=== PATIENT | male | born 1990 | race Caucasian/White ===

== ENCOUNTER → 2024-10-15 | Outpatient (CLI) | payer BC ==
[2024-10-15 10:47] VITALS: BP 162/93; PULSE 84; RESP 16; TEMP 98.1
--- NOTE | 2024-10-15 11:06 | P.SLEEP ---
History of Present Illness DATE: 10/15/2024 CONSULTATION/NEW PATIENT EVALUATION HISTORY OF PRESENT ILLNESS/SLEEP-WAKE EVALUATION: 53-year-old gentleman had been evaluated in the sleep center for possible obstructive sleep apnea hypopnea syndrome. SLEEP SCHEDULE: Usually sleep schedule from 10 PM to 7 AM on weekdays and from midnight until 8 AM on weekend. FALLING ASLEEP: Sometimes patient has difficulties with falling asleep. DURING SLEEP: Patient snores and wakes up from sleep up to 3 times. Positive history of jerking movements during the sleep. Positive history of grinding teeth, heartburn, dry mouth, restless legs and sweating. No history of hypnogogical hallucinations, sleep paralysis, or cataplexy. DURING THE DAY/WAKE STATE: In the morning patient wake up tired, has difficulties to pay attention, falling asleep during the day. Positive history of problems with memory, concentration. Hubert sleepiness scale significantly increased to 15. Usually patient does not take naps. PAST MEDICAL HISTORY: Hypertension, acid reflux, asthma, allergy, headaches, depression. PAST SURGICAL HISTORY: Tonsillectomy. MEDICATIONS: Have been reviewed, please see below. SOCIAL HISTORY: Please see below. FAMILY HISTORY: Please see below. REVIEW OF SYSTEMS: Snoring, multiple awakenings from sleep, significant excessive daytime sleepiness. No fevers. No double vision. No recent chest pain. No shortness of breath. No abdominal pain. No bleeding episodes. No blood in urine. No seizure episodes. PHYSICAL EXAMINATION: GENERAL: A pleasant patient without any distress. VITAL SIGNS: Please see below, weight 338 pounds, BMI 44.5. HEENT: PERRLA, EOMI. Evaluation of oropharynx showed tongue protrudes midline, low position of soft palate Mallampati 4. NECK: Supple. No JVD. Thyroid is not palpable. 18.5 inches in circumference. LUNGS: Clear to percussion and to auscultation. Good air exchange. No wheezing or rhonchi. HEART: S1, S2 regular. No murmurs, gallops or rubs. ABDOMEN: Soft and nontender. Bowel sounds are present. No organomegaly appreciated. EXTREMITIES: No clubbing or cyanosis. PATTERN MARKING SUPERVISOR: Awake, alert, and oriented x3. Cranial nerves 2 to 7 intact. There is no fasciculation or atrophy noted. No focal deficits observed. ASSESSMENT: 1. Snoring, multiple awakenings from sleep, extremely low position of soft pa late Mallampati 4, wide neck 18.5 inches in circumference, sleepiness with Hubert Sleepiness Scale 15. Obstructive sleep apnea hypopnea syndrome. 2. Significant amount of movements during the sleep, possible periodic limb movements. 3. Significant sleepiness with Hubert Sleepiness Scale 15 dictate necessity also include for differential diagnosis narcolepsy and hypersomnia. 4. Obesity, BMI 44.5. 5 hypertension. 6 . Acid reflux. 7. Asthma. 8. Allergy. 9 . Headaches. 10. Depression. 11. Status post tonsillectomy. PLAN: 1. Home sleep apnea test for evaluation of patient's breathing during sleep. 2. Following plan after reading sleep study. 3. Preferable position during sleep on the side. 4. No driving if patient feels any sleepiness. Patient is aware of civil and criminal liability for unsafe driving. 5. Sleep hygiene with regular sleep time for at least 7.5-8 hours. 6. Watching and losing weight. Thank you very much for referring this patient for consultation. Sincerely, Guido Lucas MD, PhD, FAASM. Diplomat of [place] [employer], Sleep Medicine Board by [place] [employer] [place] [employer] University Professor of [facility] [place] cc: Raul Alanis MD Past Medical History Past Medical History: GERD/Reflux, Hypertension Additional Past Medical History / Comment(s): low testostorone History of Any Multi-Drug Resistant Organisms: None Reported Past Surgical History: Tonsillectomy Additional Past Surgical History / Comment(s): Right Bunion, Right hand Past Anesthesia/Blood Transfusion Reactions: No Reported Reaction Past Psychological History: Depression Smoking Status: Vaper Past Alcohol Use History: Rare Past Drug Use History: None Reported - Past Family History Mother Family Medical History: Asthma, Cancer Additional Family Medical History / Comment(s): Insomnia Father Family Medical History: Cancer, GERD/Reflux, Hypertension, Osteoarthritis (OA) Additional Family Medical History / Comment(s): snoring Medications and Allergies Home Medications Medication Instructions Recorded Confirmed Type Cetirizine HCl [Zyrtec] 5 mg PO DAILY 10/15/24 10/15/24 History Famotidine 20 mg PO DAILY 10/15/24 10/15/24 History Metoprolol Succinate [Kapspargo 50 mg PO DAILY 10/15/24 10/15/24 History Sprinkle] Sertraline [Zoloft] 50 mg PO DAILY 10/15/24 10/15/24 History Testosterone Enanthate [Xyosted] 200 mg SQ WEEKLY 10/15/24 10/15/24 History Triamterene/Hydrochlorothiazid 37.5 mg SQ DAILY 10/15/24 10/15/24 History [Triamterene-Hctz 37.5-25 mg Cp] buPROPion [Wellbutrin] 100 mg PO DAILY 10/15/24 10/15/24 History Physical Exam Vitals: Vital Signs Temp Pulse Resp BP Pulse Ox 10/15/24 10:46 98.1 F 84 16 162/93 96 Intake and Output 10/14/24 10/15/24 10/15/24 22:59 06:59 14:59 Other: Weight 153.314 kg Sleep Note - Sleep Data ESS Total: 15 - Sleep Note Sleep Note: Temperature: 98.1 F Pulse Rate: 84 Respiratory Rate: 16 Blood Pressure: 162/93 SpO2: 96 Height: 6 ft 1 in Weight: 153.314 kg BMI: Neck Circumference: 18.5
== END ==
LOC: 3 N SLEEP 10:12
PROVIDERS: ATTEND Internal Medicine
DX: G47.33 Obstructive sleep apnea (adult) (pediatric) (principal); K21.9 Gastro-esophageal reflux disease without esophagitis; J45.909 Unspecified asthma, uncomplicated; F32.A Depression, unspecified; E66.9 Obesity, unspecified; R51.9 Headache, unspecified; T78.40XA Allergy, unspecified, initial encounter; Z68.41 Body mass index [BMI] 40.0-44.9, adult; Z90.89 Acquired absence of other organs
CPT/HCPCS: 99202

== ENCOUNTER → 2024-10-20 | Outpatient (CLI) | payer BC ==
--- NOTE | 2024-10-22 12:04 | P.PCN ---
Description of Procedure: CLINICAL: A home sleep apnea test has been done for confirmation of possible obstructive sleep apnea-hypopnea syndrome. DESCRIPTION OF PROCEDURE: RESULTS: Recording time was 11 hours 14 minutes. Evaluation time was 7 hours 48 minutes. Evaluation time is sufficient for making conclusion about results of the test. Raw data of sleep recording has been reviewed and is adequate. Respiratory channel showed 2 apneas and 162 hypopneas. Apnea-hypopnea index was 21.1 per hour. Pulse rate in the range between minimum 40, maximum 237, average 72 by computer calculation. Lowest desaturation was 81%. IMPRESSION: 1. Moderate Obstructive Sleep Apnea Hypopnea Syndrome. Please see other impressions from consultation. PLAN: 1. The patient will be started on auto-PAP treatment for correction of respiratory abnormallities during sleep. 2. I will see patient for follow up visit to discuss results of the test, evaluate clinical response on treatment with PAP therapy and make any necessary adjustments related to mask fitting, pressure, and humidification. 3. Watching and losing weight. 4. Sleep hygiene with regular time in bed for at least 8 hours. 5. No driving if feeling any sleepiness. Thank you very much for allowing me to participate in the management of your patient. Sincerely, Guido Lucas MD, PhD, FAASM Diplomat of [place] [employer] Sleep Medicine Board of [place] [employer] Head Of Physics of [facility] [place] cc: Leonela Alanis MD
== END ==
LOC: 3 N SLEEP 16:49
PROVIDERS: ATTEND Internal Medicine
DX: G47.33 Obstructive sleep apnea (adult) (pediatric) (principal); G47.61 Periodic limb movement disorder; E66.9 Obesity, unspecified; Z68.41 Body mass index [BMI] 40.0-44.9, adult; I10 Essential (primary) hypertension; K21.9 Gastro-esophageal reflux disease without esophagitis; J45.909 Unspecified asthma, uncomplicated; R51.9 Headache, unspecified; F32.A Depression, unspecified; Z98.890 Other specified postprocedural states

== ENCOUNTER → 2024-12-02 | Outpatient (CLI) | payer BC ==
[2024-12-02 17:29] VITALS: BP 148/88; PULSE 80; RESP 16; TEMP 98.1; BMI 44.7
--- NOTE | 2024-12-02 17:43 | P.HPBAR ---
Bariatric H&P - History & Physicial H&P Date: 12/02/24 History & Physicial: Visit/CC: new Patient initial contact: Initial weight: Initial weight in pounds: Height: 6 ft 1 in Initial BMI: Last weight: Current weight: 153.768 kg Current weight in pounds: 339.00 Current BMI: 44.7 [place] body weight (based on NIH guidelines): 83.461 kg Excess body weight loss: The patient is a 34 year-old M who presents for Bariatric Assessment. DATE OF SERVICE: 12/02/24 REASON FOR CONSULTATION: Initial bariatric evaluation. HISTORY OF PRESENT ILLNESS: Ankit Vásquez is a 34-year-old male who comes with lifelong morbid obesity. He comes in looking into sleeve gastrectomy. He has heartburn including taking Pepcid with minimal relief. He has tried weight loss with head mixer. He has tried dieting. He has taken Wegovy including weight watchers. Her highest weight is now. He has lost 80 pound in High school. He is going to gym twice daily and [employer]. He still has his gallbladder. He denies moderate abdominal cramps. He reports gallbladder was removed from half brother. He denies prior scope. He reports ultrasound of the stomach 1 year ago with nothing found. No stomach cancer. No colon cancer. No celiac disease. He denies inflammatory bowel disease or irritable bowel disease. He report his mother when he was a child and has limited knowledge of his family history. At height of 6 feet 1 inches, ideal body weight is 188 pounds. He comes in 339 pounds. Body mass index is 44.7. He is 151 pounds overweight. PAST MEDICAL HISTORY: 1. Morbid obesity due to excess calories 2. Body mass index of 44.7 3. Gastroesophageal reflux disease 4. Hyperlipidemia 5. Hypertensive heart disease 6. Obstructive sleep apnea 7. Hypotestosteronism 8. Mnire's disease 9. Depressive disorder 10. Gout 11. Osteoarthritis lower back PAST SURGICAL HISTORY: 1. Tonsillectomy 2. Bunionectomy 3. [place] tooth extraction HOME MEDICATIONS: Home Medications Medication Instructions Recorded Confirmed Sertraline [Zoloft] 50 mg PO HS 10/15/24 12/30/24 Testosterone Enanthate [Xyosted] 200 mg SQ WEEKLY 10/15/24 12/30/24 Triamterene/Hydrochlorothiazid 37.5 mg PO QAM 10/15/24 12/30/24 [Triamterene-Hctz 37.5-25 mg Cp] buPROPion [Wellbutrin] 100 mg PO DAILY 10/15/24 12/30/24 Fenofibrate 160 mg PO DAILY 12/02/24 12/30/24 Ibuprofen 800 mg PO HS PRN 12/02/24 12/30/24 Multivitamins, Thera [Multivitamin 1 tab PO DAILY 12/02/24 12/30/24 (formulary)] Metoprolol Succinate [Toprol XL] 50 mg PO HS 12/17/24 12/30/24 Vitamin B-12 (Unknown Dose) 1 tab PO DAILY 12/17/24 12/30/24 Vitamin D (Unknown Dose) 1 tab PO DAILY 12/17/24 12/30/24 Zyrtec (Unknown Dose) 1 tab PO HS 12/17/24 12/30/24 methocarbamoL [Robaxin-750] 750 mg PO HS 12/17/24 12/30/24 allopurinoL 100 mg PO DAILY 12/30/24 12/30/24 Previous Rx's Medication Instructions Recorded Omeprazole [PriLOSEC] 40 mg PO DAILY #14 cap 12/21/24 Ergocalciferol [Vitamin D2 (1250 1,250 mcg PO WEEKLY #20 cap 12/30/24 Mcg = 61867 Iu)] ALLERGIES: Allergies Allergy/AdvReac Type Severity Reaction Status Date / Time cephalexin [From Keflex] Allergy Rash/Hives Verified 12/30/24 16:09 SOCIAL HISTORY: Past tobacco use. FAMILY HISTORY: No family history of ulcerative colitis disease or Crohn's disease. Family history of morbid obesity. No lupus in the family. No reports of stomach or esophageal cancer. REVIEW OF ORGAN SYSTEMS: CONSTITUTIONAL: At height of 6 feet 1 inches, ideal body weight is 188 pounds. He comes in 339 pounds. Body mass index is 44.7. He is 151 pounds overweight. HEENT: Denies any active troubles with vision or hearing. Has troubles with swallowing. ENDOCRINE: Denies diabetes. No hypothyroidism. CARDIOVASCULAR: Past reports of palpitations or heart attacks or chest pain. Has hypertensive heart disease. RESPIRATORY: Has daytime somnolence. Denies asthma. GASTROINTESTINAL: Denies any bright red blood per rectum. No diarrhea. No constipation. Has gastroesophageal reflux disease. GENITOURINARY: Denies bladder urgency. No recent blood in urine MUSCULOSKELETAL: Has lower back pain and joint pain. Has osteoarthritis of the knees. NEURO: No headaches. No seizure disorders. PSYCH: Has depression. No suicidal ideation. RHEUMATOLOGIC: No lupus. No rheumatoid arthritis. HEMATOLOGIC: Denies any abnormal bleeding or bruising. SKIN: No rash. No skin cancer. PHYSICAL EXAM: VITAL SIGNS: Height 6 foot 1 inches, weight 339 pounds. BMI 44.7 Vital Signs Temp 98.1 F 12/02/24 17:19 Pulse 80 12/02/24 17:19 Resp 16 12/02/24 17:19 BP 148/88 12/02/24 17:19 Pulse Ox FiO2 GENERAL: Well-developed in no acute distress. HEENT: No scleral icterus. Extraocular movements grossly intact. Hears conversational speech. No nasal drainage. NECK: Supple without lymphadenopathy. CHEST: Nonlabored respirations with equal bilateral excursions. CARDIOVASCULAR: Regular rate and regular rhythm. Distal 2+ pulses. ABDOMEN: Obese, soft, nontender, nondistended. MUSCULOSKELETAL: No clubbing, cyanosis. Gross strength 5/5 distal lower extremities. NEURO: No focal or lateralizing signs. Cranial nerves 2 through 12 grossly within normal limits. PSYCH: Appropriate affect. Alert and oriented to person, place and time. SKIN: Good skin turgor. Well perfused. ASSESSMENT: 1. Morbid obesity due to excess calories 2. Body mass index of 44.7 3. Gastroesophageal reflux disease 4. Hyperlipidemia 5. Hypertensive heart disease 6. Obstructive sleep apnea 7. Hypotestosteronism 8. Mnire's disease 9. Depressive disorder 10. Gout 11. Osteoarthritis lower back PLAN: 1. Surgical options including a band, gastric bypass, sleeve gastrectomy were described in detail. Alternatives such as gastric balloon including duodenal switch were described. He is looking into the sleeve gastrectomy. 2. Recommend ultrasound of the gallbladder including for family history of gallbladder disease 3. Recommend a bariatric metabolic panel to evaluate for micro- including macronutrient deficiencies. 4. For history of daytime somnolence, recommend evaluation and treatment for sleep apnea. 5. Dietary surveillance and counseling was reviewed. Increased protein intake over 100 grams daily advised. 6. Will need cardiac risk assessment. 7. Recommend medical risk assessment. 8. Psych assessment per insurance guidelines. 9. Recommend upper endoscopy. 10. Recommend 12-lead EKG. Thank you for this consultation. Past Medical History Past Medical History: GERD/Reflux, Hyperlipidemia, Hypertension, Sleep Apnea/CPAP/BIPAP Additional Past Medical History / Comment(s): low testostorone, beginnings of meineres syndrome History of Any Multi-Drug Resistant Organisms: None Reported Past Surgical History: Tonsillectomy Additional Past Surgical History / Comment(s): Right Bunion, Right hand, [place] teeth Past Anesthesia/Blood Transfusion Reactions: No Reported Reaction Past Psychological History: Depression Smoking Status: Former smoker Past Alcohol Use History: Rare Past Drug Use History: None Reported - Past Family History Mother Family Medical History: Asthma, Cancer Additional Family Medical History / Comment(s): Insomnia Father Family Medical History: Cancer, GERD/Reflux, Hypertension, Osteoarthritis (OA) Additional Family Medical History / Comment(s): snoring Surgical - Exam Vital Signs Temp Pulse Resp BP 98.1 F 80 16 148/88 12/02/24 17:19 12/02/24 17:19 12/02/24 17:19 12/02/24 17:19 Bariatric Checklist Checklist: Plan: Checklist: EGD: 1. Hiatal hernia: 2. H. Pylori: HgbA1c: Vitamin D: Smoking: Primary care physician referral: Leonela Alanis Psychiatry clearance: Cardiology clearance: Sleep study: Diet journal: VTE risk score: VTE risk level: Rehab needs at discharge:
== END ==
LOC: BARWHC3 15:47
PROVIDERS: ATTEND Surgery Plastic and Reconstructive Surgery
DX: E66.01 Morbid (severe) obesity due to excess calories (principal); K21.9 Gastro-esophageal reflux disease without esophagitis; I11.9 Hypertensive heart disease without heart failure; E78.5 Hyperlipidemia, unspecified; G47.33 Obstructive sleep apnea (adult) (pediatric); H81.09 Meniere's disease, unspecified ear; M10.9 Gout, unspecified; F32.A Depression, unspecified; M19.09 Primary osteoarthritis, other specified site; Z68.41 Body mass index [BMI] 40.0-44.9, adult; Z88.1 Allergy status to other antibiotic agents
CPT/HCPCS: 99211

== ENCOUNTER → 2024-12-05 | Outpatient (CLI) | payer BC ==
[2024-12-05 12:06] LABS: Partial Thromboplastin Time 24.2 sec (22.0-30.0); Prothrombin Time 11.2 sec (10.0-12.5)
[2024-12-06 06:45] LABS: HCT 42.8 % (39.6-50.0); HGB 14.5 g/dL (13.0-17.0); MCH 29.4 pg (27.0-32.0); MCHC 33.9 g/dL (32.0-37.0); MCV 86.8 FL (80.0-97.0); Mean Platelet Volume 10.7 FL (9.5-12.2); NRBC Per 100 WBC 0 X 10*3/uL (0.00-0.01); Platelet Count 285 X 10*3/uL (140-440); RBC 4.93 X 10*6/uL (4.40-5.60); RDW 12.5 % (11.5-14.5); WBC 6.51 X 10*3/uL (4.50-10.00)
[2024-12-06 07:58] LABS: ALT 52 U/L (10-49); AST 41 U/L (14-35); Albumin 4.6 g/dL (3.8-4.9); Alkaline Phosphatase 50 U/L (41-126); Blood Urea Nitrogen 12.8 mg/dL (9.0-27.0); Calcium 9.8 mg/dL (8.7-10.3); Carbon Dioxide 25.3 mmol/L (21.6-31.8); Chloride 102 mmol/L (96-109); Chol/HDL Ratio 5.68 Ratio; Globulin 2.7 g/dL (1.6-3.3); Glucose 91 mg/dL (70-110); LDL Cholesterol,Calculated 64.3 mg/dL (0.0-131.0); Magnesium 1.9 mg/dL (1.5-2.4); Potassium 4.2 mmol/L (3.5-5.5); Sodium 140 mmol/L (135-145); Total Bilirubin 0.5 mg/dL (0.3-1.2); Total Protein 7.3 g/dL (6.2-8.2)
[2024-12-06 09:53] LABS: % Iron Saturation 23.81 (15.00-50.00); Iron 75 UG/DL (65-175); Total Iron Binding Capacity 315 UG/DL (228-460)
[2024-12-06 11:32] LABS: Prealbumin 29.8 mg/dL (18.0-42.0)
== END | disposition home or self-care (01) ==
LOC: LABWHC1 10:16
PROVIDERS: ATTEND Surgery Plastic and Reconstructive Surgery
DX: E66.01 Morbid (severe) obesity due to excess calories (principal); E89.1 Postprocedural hypoinsulinemia; E44.0 Moderate protein-calorie malnutrition; E45 Retarded development following protein-calorie malnutrition; E55.9 Vitamin D deficiency, unspecified; D50.8 Other iron deficiency anemias; D50.9 Iron deficiency anemia, unspecified; K74.1 Hepatic sclerosis; N19 Unspecified kidney failure; K50.90 Crohn's disease, unspecified, without complications; T56.894A Toxic effect of other metals, undetermined, initial encounter
CPT/HCPCS: 36415; 80053; 80061; 80307; 80323; 82306; 82525; 82607; 82728; 82746; 83036; 83540; 83550; 83735; 83970; 84100; 84134; 84425; 84443; 84590; 84630; 85027; 85610; 85730

== ENCOUNTER → 2024-12-16 | Outpatient (CLI) | payer BC | END | disposition home or self-care (01) | LOC: LABWHC1 15:30 | PROVIDERS: ATTEND Surgery Plastic and Reconstructive Surgery | DX: Z53.9 Procedure and treatment not carried out, unspecified reason (principal) ==

== ENCOUNTER → 2024-12-21 | Day surgery (SDC) | payer BC ==
[2024-12-17 12:14] VITALS: BMI 45.3
[~2024-12-21] MED LIST: LACTATED RINGERS 1,000 ML IV SCH; LIDOCAINE 1% (10MG/ML) FOR IV START INTRADERMA PRN; LIDOCAINE 1% INJ 10MG/ML (20 ML MDV) ONE; PROPOFOL 10 MG/ML 20 ML VIAL IV ONE
--- NOTE | 2024-12-21 07:39 | P.GSHP ---
History of Present Illness H&P Date: 12/21/24 CHIEF COMPLAINT: GERD HISTORY OF PRESENT ILLNESS: The patient is a 34-year-old male who presents reports gastroesophageal reflux disease. Upper endoscopy was offered for further evaluation and management. PAST MEDICAL HISTORY: Please see list. PAST SURGICAL HISTORY: Please see list. MEDICATIONS: Please see list. ALLERGIES: Please see list. SOCIAL HISTORY: No illicit drug use FAMILY HISTORY: No reports of Crohn disease or ulcerative colitis. REVIEW OF ORGAN SYSTEMS: CONSTITUTIONAL: No reports of fevers or chills. GI: Denies any blood in stools or constipation. PHYSICAL EXAM: VITAL SIGNS: Stable GENERAL: Well-developed and pleasant in no acute distress. HEENT: No scleral icterus. Extraocular movements grossly intact. Moist buccal mucosa. NECK: Supple without lymphadenopathy. CHEST: Unlabored respirations. Equal bilateral excursions. CARDIOVASCULAR: Regular rate and rhythm. Distal 2+ pulses. ABDOMEN: Soft, nondistended. MUSCULOSKELETAL: No clubbing, cyanosis, or edema. ASSESSMENT: 1. Gastroesophageal reflux disease PLAN: 1. Recommend proceeding with an upper endoscopy Past Medical History Past Medical History: Asthma, GERD/Reflux, Hearing Disorder / Deafness, Hyperlipidemia, Hypertension, Osteoarthritis (OA), Sleep Apnea/CPAP/BIPAP Additional Past Medical History / Comment(s): No asthma attack since childhood, hard of hearing, possible fatty liver, low testostorone, Meineres, CPAP use, hemorrrhoids, migraines and headaches. History of Any Multi-Drug Resistant Organisms: None Reported Past Surgical History: Tonsillectomy Additional Past Surgical History / Comment(s): Right bunionectomy, right hand surgery, wisdom teeth removed, colonoscopy, procedure for tongue tie. Past Anesthesia/Blood Transfusion Reactions: No Reported Reaction, Motion Sickness Smoking Status: Former smoker - Past Family History Mother Family Medical History: Asthma, Cancer Additional Family Medical History / Comment(s): Insomnia. Father Family Medical History: Cancer, GERD/Reflux, Hypertension, Osteoarthritis (OA) Additional Family Medical History / Comment(s): Snoring. Medications and Allergies Home Medications Medication Instructions Recorded Confirmed Type Famotidine 20 mg PO BID 10/15/24 12/17/24 History Sertraline [Zoloft] 50 mg PO HS 10/15/24 12/17/24 History Testosterone Enanthate [Xyosted] 200 mg SQ WEEKLY 10/15/24 12/17/24 History Triamterene/Hydrochlorothiazid 37.5 mg PO QAM 10/15/24 12/17/24 History [Triamterene-Hctz 37.5-25 mg Cp] buPROPion [Wellbutrin] 100 mg PO DAILY 10/15/24 12/17/24 History Fenofibrate 160 mg PO DAILY 12/02/24 12/17/24 History Ibuprofen 800 mg PO HS PRN 12/02/24 12/17/24 History Multivitamins, Thera [Multivitamin 1 tab PO DAILY 12/02/24 12/17/24 History (formulary)] Metoprolol Succinate [Toprol XL] 50 mg PO HS 12/17/24 12/17/24 History Vitamin B-12 (Unknown Dose) 1 tab PO DAILY 12/17/24 12/17/24 History Vitamin D (Unknown Dose) 1 tab PO DAILY 12/17/24 12/17/24 History Zyrtec (Unknown Dose) 1 tab PO HS 12/17/24 12/17/24 History methocarbamoL [Robaxin-750] 750 mg PO HS 12/17/24 12/17/24 History Allergies Allergy/AdvReac Type Severity Reaction Status Date / Time cephalexin [From Keflex] Allergy Rash/Hives Verified 12/17/24 11:54
[2024-12-21] MEDS: LACTATED RINGERS 1,000 ML IV ONE (08:25)
[2024-12-21 08:29] VITALS: TEMP 97.7
--- NOTE | 2024-12-21 08:55 | P.PCN ---
Date of Procedure: 12/21/24 Description of Procedure: PREOPERATIVE DIAGNOSIS: Gastroesophageal reflux disease. Dysphagia Morbid obesity due to excess calories, BMI 44.6 POSTOPERATIVE DIAGNOSIS: Gastroesophageal reflux disease with erosive esophagitis Morbid obesity. Gastritis, acute Esophageal ulcer OPERATION: Esophagogastroduodenoscopy with cold forceps biopsies along esophagus, antrum and duodenum SURGEON: Kena Rubin MD ANESTHESIA: MAC. INDICATIONS: The patient is a 34-year-old female who presents with reflux disease. Benefits and risks of the procedure were described. Informed consent was obtained. DESCRIPTION: The patient was brought into the endoscopy suite and laid in the left lateral decubitus position. An Olympus gastroscope was passed along the posterior oropharynx down to the distal esophagus where the squamocolumnar junction was encountered at 40 cm from the incisors. The stomach was entered and no bile reflux was found. Additional findings are listed below. Biopsies with cold forceps were obtained of the antrum. The first through third portion of the duodenum was examined. Retroflexion of the scope confirmed Hill grade 2 lower esophageal valve. The squamocolumnar junction demonstrated LA grade B erosive esophagitis. The stomach was desufflated. The patient tolerated the procedure well. FINDINGS: Squamocolumnar junction 40 cm from the incisors. Diaphragmatic hiatus at 40 cm. Hill grade 2 lower esophageal valve. LA grade B erosive esophagitis with acute esophageal ulcer, biopsy obtained Biopsies obtained of the duodenum. Chronic gastritis with biopsies obtained. RECOMMENDATIONS: Discontinue Pepcid, start omeprazole 40 mg daily for 2 weeks Plan - Discharge Summary Discharge Rx Participant: Yes New Discharge Prescriptions: New Omeprazole [PriLOSEC] 40 mg PO DAILY #14 cap Continue Triamterene/Hydrochlorothiazid [Triamterene-Hctz 37.5-25 mg Cp] 37.5 mg PO QAM Sertraline [Zoloft] 50 mg PO HS Zyrtec (Unknown Dose) 1 tab PO HS Vitamin B-12 (Unknown Dose) 1 tab PO DAILY Testosterone Enanthate [Xyosted] 200 mg SQ WEEKLY buPROPion [Wellbutrin] 100 mg PO DAILY Ibuprofen 800 mg PO HS PRN PRN Reason: Pain Fenofibrate 160 mg PO DAILY Multivitamins, Thera [Multivitamin (formulary)] 1 tab PO DAILY Metoprolol Succinate [Toprol XL] 50 mg PO HS methocarbamoL [Robaxin-750] 750 mg PO HS Vitamin D (Unknown Dose) 1 tab PO DAILY Discontinued Famotidine 20 mg PO BID Discharge Medication List Sertraline [Zoloft] 50 mg PO HS 10/15/24 [History] Testosterone Enanthate [Xyosted] 200 mg SQ WEEKLY 10/15/24 [History] Triamterene/Hydrochlorothiazid [Triamterene-Hctz 37.5-25 mg Cp] 37.5 mg PO QAM 10/15/24 [History] buPROPion [Wellbutrin] 100 mg PO DAILY 10/15/24 [History] Fenofibrate 160 mg PO DAILY 12/02/24 [History] Ibuprofen 800 mg PO HS PRN 12/02/24 [History] Multivitamins, Thera [Multivitamin (formulary)] 1 tab PO DAILY 12/02/24 [History] Metoprolol Succinate [Toprol XL] 50 mg PO HS 12/17/24 [History] Vitamin B-12 (Unknown Dose) 1 tab PO DAILY 12/17/24 [History] Vitamin D (Unknown Dose) 1 tab PO DAILY 12/17/24 [History] Zyrtec (Unknown Dose) 1 tab PO HS 12/17/24 [History] methocarbamoL [Robaxin-750] 750 mg PO HS 12/17/24 [History] Omeprazole [PriLOSEC] 40 mg PO DAILY #14 cap 12/21/24 [Rx] [facility]Ref[facility] [facility] [place] [place] [facility] [place] 12/30/24 3:00 pm Patient Instructions/Handouts: Peptic Ulcer (DC) Discharge Disposition: HOME SELF-CARE
[2024-12-21 09:09] VITALS: BP 122/67; PULSE 79; RESP 16
== END | disposition home or self-care (01) ==
LOC: ORWHC2ENDO 07:51
PROVIDERS: ATTEND Surgery Plastic and Reconstructive Surgery
DX: K21.00 Gastro-esophageal reflux disease with esophagitis, without bleeding (principal); K22.10 Ulcer of esophagus without bleeding; D72.10 Eosinophilia, unspecified; K29.50 Unspecified chronic gastritis without bleeding; I10 Essential (primary) hypertension; E78.5 Hyperlipidemia, unspecified; G47.33 Obstructive sleep apnea (adult) (pediatric); H91.90 Unspecified hearing loss, unspecified ear; E66.01 Morbid (severe) obesity due to excess calories; Z68.41 Body mass index [BMI] 40.0-44.9, adult; Z79.890 Hormone replacement therapy; Z79.899 Other long term (current) drug therapy; Z87.891 Personal history of nicotine dependence; Z88.1 Allergy status to other antibiotic agents; Z83.79 Family history of other diseases of the digestive system
CPT/HCPCS: 88305; 88312; 88342; 43239; J2003; J2704

== ENCOUNTER → 2024-12-28 | Outpatient (CLI) | payer BC ==
[2024-12-28 13:17] VITALS: BMI 45.1
== END ==
LOC: BARWHC3 12:58
PROVIDERS: ATTEND Surgery Plastic and Reconstructive Surgery
DX: E66.01 Morbid (severe) obesity due to excess calories (principal); Z71.3 Dietary counseling and surveillance; Z88.1 Allergy status to other antibiotic agents
CPT/HCPCS: 97804

== ENCOUNTER → 2024-12-30 | Outpatient (CLI) | payer BC ==
[2024-12-30 16:22] VITALS: BP 144/91; PULSE 86; RESP 16; TEMP 98.7; BMI 44.3
--- NOTE | 2024-12-30 17:02 | P.HPBAR ---
Bariatric H&P - History & Physicial H&P Date: 12/30/24 History & Physicial: Visit/CC: pre surg Patient initial contact: Initial weight: Initial weight in pounds: Height: 6 ft 1 in Initial BMI: Last weight: Current weight: 152.407 kg Current weight in pounds: 336.00 Current BMI: 44.3 [place] body weight (based on NIH guidelines): 83.63 kg Excess body weight loss: The patient is a 34 year-old M who presents for Bariatric Assessment. He is looking into sleeve. Consent. Vit D sent. EKG gorgeous. CPAP machine. 2 week recovery. Diet. Still has gallbladder. Has elevated LFTS. Brother has gallbladder problems. Will need cholecystectomy. US gallbladder. Past Medical History Past Medical History: GERD/Reflux, Hyperlipidemia, Hypertension, Sleep Apnea/CPAP/BIPAP Additional Past Medical History / Comment(s): low testostorone, beginnings of meineres syndrome, gout History of Any Multi-Drug Resistant Organisms: None Reported Past Surgical History: Tonsillectomy Additional Past Surgical History / Comment(s): Right Bunion, Right hand, [place] teeth Past Anesthesia/Blood Transfusion Reactions: No Reported Reaction Past Psychological History: Depression Smoking Status: Former smoker Past Alcohol Use History: Rare Additional Past Alcohol Use History / Comment(s): Quit smoking over a yr ago. Past Drug Use History: None Reported - Past Family History Mother Family Medical History: Asthma, Cancer Father Family Medical History: Cancer, GERD/Reflux, Hypertension, Osteoarthritis (OA) Surgical - Exam Vital Signs Temp Pulse Resp BP 98.7 F 86 16 144/91 12/30/24 16:09 12/30/24 16:09 12/30/24 16:09 12/30/24 16:09 Bariatric Checklist Checklist: Plan: Checklist: EGD: 1. Hiatal hernia: 2. H. Pylori: HgbA1c: Vitamin D: Smoking: Primary care physician referral: Leonela Alanis Psychiatry clearance: Cardiology clearance: Sleep study: Diet journal: VTE risk score: VTE risk level: Rehab needs at discharge:
== END ==
LOC: BARWHC3 15:21
PROVIDERS: ATTEND Surgery Plastic and Reconstructive Surgery
DX: E66.01 Morbid (severe) obesity due to excess calories (principal); Z68.41 Body mass index [BMI] 40.0-44.9, adult; Z88.1 Allergy status to other antibiotic agents
CPT/HCPCS: 99211

== ENCOUNTER → 2025-01-07 | Outpatient (CLI) | payer BC ==
[2025-01-07 15:02] LABS: Basophils # (A) 0.05 X 10*3/uL (0.00-0.10); Basophils % (A) 0.6 %; Eosinophils # (A) 0.24 X 10*3/uL (0.04-0.35); Eosinophils % (A) 2.8 %; HCT 43.4 % (39.6-50.0); HGB 14.9 g/dL (13.0-17.0); Lymphocytes # (A) 1.84 X 10*3/uL (0.90-5.00); Lymphocytes % (A) 21.8 %; MCH 29.5 pg (27.0-32.0); MCHC 34.3 g/dL (32.0-37.0); MCV 85.9 FL (80.0-97.0); Mean Platelet Volume 9.7 FL (9.5-12.2); Monocytes # (A) 0.43 X 10*3/uL (0.20-1.00); Monocytes % (A) 5.1 %; NRBC Per 100 WBC 0 X 10*3/uL (0.00-0.01); Neutrophils # (A) 5.84 X 10*3/uL (1.80-7.70); Neutrophils % (A) 69.1 %; Platelet Count 417 X 10*3/uL (140-440); RBC 5.05 X 10*6/uL (4.40-5.60); RDW 12.3 % (11.5-14.5); WBC 8.45 X 10*3/uL (4.50-10.00)
[2025-01-07 15:05] LABS: ALT 38 U/L (10-49); AST 34 U/L (14-35); Albumin 4.7 g/dL (3.8-4.9); Albumin/Globulin Ratio 1.62 Ratio (1.60-3.17); Alkaline Phosphatase 47 U/L (41-126); Blood Urea Nitrogen 14.6 mg/dL (9.0-27.0); Calcium 10.1 mg/dL (8.7-10.3); Carbon Dioxide 24.8 mmol/L (21.6-31.8); Chloride 101 mmol/L (96-109); Globulin 2.9 g/dL (1.6-3.3); Glucose 95 mg/dL (70-110); Potassium 4.3 mmol/L (3.5-5.5); Sodium 138 mmol/L (135-145); Total Bilirubin 0.6 mg/dL (0.3-1.2); Total Protein 7.6 g/dL (6.2-8.2)
== END | disposition home or self-care (01) ==
LOC: LABPAT 08:12
PROVIDERS: ATTEND Surgery Plastic and Reconstructive Surgery
DX: Z01.812 Encounter for preprocedural laboratory examination (principal)
CPT/HCPCS: 80053; 85025; 86850; 86900; 86901

== ENCOUNTER → 2025-01-07 | Outpatient (CLI) | payer BC ==
--- NOTE | 2025-01-07 08:21 | US ---
EXAMINATION TYPE: US gallbladder DATE OF EXAM: 01/07/2025 COMPARISON: NONE CLINICAL INDICATION: Male, 34 years old with history of R94.5 ABNORMAL LFT'S; Patient is having gastr ic bypass in 2 weeks. TECHNIQUE: Grayscale and color Doppler imaging of the right upper quadrant was performed. FINDINGS: EXAM MEASUREMENTS: Liver Length: 19.3 cm Gallbladder Wall: 0.2 cm CBD: 0.5 cm Right Kidney: 9.9 x 5.4 x 5.5 cm Pancreas: Limited visualization Liver: Increased attenuation, decreased visualization of vessels suggestive of fatty infiltrate. Ec hogenic. Enlarged in size. Gallbladder: No stones or wall thickening seen at time of scan Evidence for sonographic Ivy's sign: neg CBD: wnl Right Kidney: No hydronephrosis or masses seen Poor visualization of the pancreas due to overlying bowel gas. The liver is diffusely echogenic and e nlarged with poor penetration. Gallbladder demonstrates no shadowing gallstones, wall thickening or s urrounding fluid. Common bile duct is within normal limits. No hydronephrosis, shadowing calculi or r enal mass involving the right kidney. IMPRESSION: Hepatomegaly with diffuse fatty infiltration. [facility], , 01/07/2025 8:18 AM
== END | disposition home or self-care (01) ==
LOC: RADUSWWP 07:51
PROVIDERS: ATTEND Surgery Plastic and Reconstructive Surgery
DX: K76.0 Fatty (change of) liver, not elsewhere classified (principal); R16.0 Hepatomegaly, not elsewhere classified; R94.5 Abnormal results of liver function studies
CPT/HCPCS: 76705

== ENCOUNTER 2025-01-18 10:11 | Day surgery (SDC) | payer BC ==
[~2025-01-18 10:11] MED LIST changes: -LACTATED RINGERS 1,000 ML IV SCH; -LIDOCAINE 1% INJ 10MG/ML (20 ML MDV) ONE; +ONDANSETRON 4 MG/2 ML VIAL IVP PRN; -PROPOFOL 10 MG/ML 20 ML VIAL IV ONE
--- NOTE | 2025-01-18 10:50 | P.GSHP ---
History of Present Illness H&P Date: 01/18/25 DATE OF SERVICE: 01/18/2025 CHIEF COMPLAINT: Morbid obesity HISTORY OF PRESENT ILLNESS: Ankit Vásquez is a 34-year-old male who comes with lifelong morbid obesity. He comes in looking into sleeve gastrectomy. As a result of his morbid obesity, he is developed obstructive sleep apnea, hypertensive heart disease, osteoarthritis. He has completed medical including cardiac risk assessment. He also presents with family history of gallbladder disorder including epigastric and right upper quadrant abdominal pain during his weight loss. He has exceeded his anticipated weight loss of 322 pounds and comes in 315 pounds. At height of 6 feet 1 inches, ideal body weight is 188 pounds. He comes in 315 pounds from 339 pounds. He has lost 23 pounds in over 1 month. Body mass index is down from 44.7 to 41.7. He is 128 pounds overweight. PAST MEDICAL HISTORY: 1. Morbid obesity due to excess calories 2. Body mass index of 44.7 3. Gastroesophageal reflux disease 4. Hyperlipidemia 5. Hypertensive heart disease 6. Obstructive sleep apnea 7. Hypotestosteronism 8. Mnire's disease 9. Depressive disorder 10. Gout 11. Osteoarthritis lower back PAST SURGICAL HISTORY: 1. Tonsillectomy 2. Bunionectomy 3. Fiatt tooth extraction HOME MEDICATIONS: Home Medications Medication Instructions Recorded Confirmed Sertraline [Zoloft] 50 mg PO HS 10/15/24 01/14/25 Testosterone Enanthate [Xyosted] 100 mg SQ WEEKLY 10/15/24 01/14/25 Triamterene/Hydrochlorothiazid 37.5 mg PO QAM 10/15/24 01/14/25 [Triamterene-Hctz 37.5-25 mg Cp] buPROPion [Wellbutrin] 100 mg PO DAILY 10/15/24 01/14/25 Fenofibrate 160 mg PO DAILY 12/02/24 01/14/25 Multivitamins, Thera [Multivitamin 1 tab PO DAILY 12/02/24 01/14/25 (formulary)] Metoprolol Succinate [Toprol XL] 50 mg PO HS 12/17/24 01/14/25 Vitamin B-12 (Unknown Dose) 1 tab PO DAILY 12/17/24 01/14/25 Zyrtec (Unknown Dose) 1 tab PO HS 12/17/24 01/14/25 methocarbamoL [Robaxin-750] 750 mg PO HS 12/17/24 01/14/25 allopurinoL 100 mg PO DAILY 12/30/24 01/14/25 Albuterol Inhaler [Ventolin Hfa 1 - 2 puff INHALATION Q6H PRN 01/14/25 01/14/25 Inhaler] Previous Rx's Medication Instructions Recorded Omeprazole [PriLOSEC] 40 mg PO DAILY #14 cap 12/21/24 Ergocalciferol [Vitamin D2 (1250 1,250 mcg PO WEEKLY #20 cap 12/30/24 Mcg = 82244 Iu)] ALLERGIES: Allergies Allergy/AdvReac Type Severity Reaction Status Date / Time cephalexin [From Keflex] Allergy Rash/Hives Verified 01/18/25 10:26 SOCIAL HISTORY: Past tobacco use. FAMILY HISTORY: No family history of ulcerative colitis disease or Crohn's disease. Family history of morbid obesity. No lupus in the family. No reports of stomach or esophageal cancer. REVIEW OF ORGAN SYSTEMS: CONSTITUTIONAL: At height of 6 feet 1 inches, ideal body weight is 188 pounds. He comes in 339 pounds. Body mass index is 44.7. He is 151 pounds overweight. HEENT: Denies any active troubles with vision or hearing. Has troubles with swallowing. ENDOCRINE: Denies diabetes. No hypothyroidism. CARDIOVASCULAR: Past reports of palpitations or heart attacks or chest pain. Has hypertensive heart disease. RESPIRATORY: Has daytime somnolence. Denies asthma. GASTROINTESTINAL: Denies any bright red blood per rectum. No diarrhea. No constipation. Has gastroesophageal reflux disease. GENITOURINARY: Denies bladder urgency. No recent blood in urine MUSCULOSKELETAL: Has lower back pain and joint pain. Has osteoarthritis of the knees. NEURO: No headaches. No seizure disorders. PSYCH: Has depression. No suicidal ideation. RHEUMATOLOGIC: No lupus. No rheumatoid arthritis. HEMATOLOGIC: Denies any abnormal bleeding or bruising. SKIN: No rash. No skin cancer. PHYSICAL EXAM: VITAL SIGNS: Height 6 foot 1 inches, weight 315 pounds. BMI 41.7 Vital Signs Temp 98 F 01/18/25 10:32 Pulse 85 01/18/25 10:32 Resp 16 01/18/25 10:32 BP 141/89 01/18/25 10:32 Pulse Ox 97 01/18/25 10:32 FiO2 Intake & Output 01/17/25 01/18/25 01/18/25 18:59 06:59 18:59 Weight 143.2 kg GENERAL: Well-developed in no acute distress. HEENT: No scleral icterus. Extraocular movements grossly intact. Hears conversational speech. No nasal drainage. NECK: Supple without lymphadenopathy. CHEST: Nonlabored respirations with equal bilateral excursions. CARDIOVASCULAR: Regular rate and regular rhythm. Distal 2+ pulses. ABDOMEN: Obese, soft, nontender, nondistended. MUSCULOSKELETAL: No clubbing, cyanosis. Gross strength 5/5 distal lower extremities. NEURO: No focal or lateralizing signs. Cranial nerves 2 through 12 grossly within normal limits. PSYCH: Appropriate affect. Alert and oriented to person, place and time. SKIN: Good skin turgor. Well perfused. STUDIES: Ultrasound of the gallbladder independent reviewed demonstrates severe fatty liver infiltration with hepatomegaly and fatty liver disease. This is my independent interpretation. No large gallstones identified. ASSESSMENT: 1. Morbid obesity due to excess calories 2. Body mass index of 44.7 3. Gastroesophageal reflux disease 4. Hyperlipidemia 5. Hypertensive heart disease 6. Obstructive sleep apnea 7. Hypotestosteronism 8. Mnire's disease 9. Depressive disorder 10. Gout 11. Osteoarthritis lower back 12. Right upper quadrant abdominal pain 13. Family history of cholecystitis PLAN: 1. Bariatric options between a sleeve, band and a Abelino-en-Y gastric bypass were reviewed in detail. The patient elected for a sleeve gastrectomy. Robotic assisted approach described. 2. The [place] [facility] Data was also reviewed with benefits and risks as described. 3. An 8 page second-generation bariatric consent form was reviewed in detail including potential of bleeding, infection, leaks, adequate weight loss, nutritional deficiencies which the patient demonstrated understanding of the risks. 4. A 2 week high-protein low caloric 800 kcal diet described to address hepatomegaly. He has exceeded his anticipated weight loss of 5% less than 322 pounds. 5. Preoperative labs including complete metabolic panel and CBC with type and screen recommended. 6. DVT prophylaxis per [place] [facility]ariat[facility] collaborative. 7. Antibiotic prophylaxis. 8. Inpatient hospitalization anticipated for more than 2 nights. 9. All questions and concerns were addressed with the patient. 10. The patient is at elevated risk for perioperative complications with sleep apnea and hypertensive heart disease. 11. Overall, patient has expressed understanding of bariatric care including postoperative diet and commitment of lifestyle. Patient should benefit from surgical intervention for correction of morbid obesity. 12. He is elevated risk due to pre-existing comorbid conditions Past Medical History Past Medical History: Asthma, GERD/Reflux, Hearing Disorder / Deafness, Hyperlipidemia, Hypertension, Sleep Apnea/CPAP/BIPAP Additional Past Medical History / Comment(s): asthma as a child, low testostorone, right ear IROQUOIS, menieres, gout, uses CPAP History of Any Multi-Drug Resistant Organisms: None Reported Past Surgical History: Orthopedic Surgery, Tonsillectomy Additional Past Surgical History / Comment(s): Right bunionectomy, Right hand surg, Fiatt teeth, EGD Past Anesthesia/Blood Transfusion Reactions: No Reported Reaction Smoking Status: Former smoker - Past Family History Mother Family Medical History: Asthma, Cancer Additional Family Medical History / Comment(s): breast ca Father Family Medical History: Cancer, GERD/Reflux, Hypertension, Osteoarthritis (OA) Additional Family Medical History / Comment(s): Snoring. Medications and Allergies Home Medications Medication Instructions Recorded Confirmed Type Sertraline [Zoloft] 50 mg PO HS 10/15/24 01/14/25 History Testosterone Enanthate [Xyosted] 100 mg SQ WEEKLY 10/15/24 01/14/25 History Triamterene/Hydrochlorothiazid 37.5 mg PO QAM 10/15/24 01/14/25 History [Triamterene-Hctz 37.5-25 mg Cp] buPROPion [Wellbutrin] 100 mg PO DAILY 10/15/24 01/14/25 History Fenofibrate 160 mg PO DAILY 12/02/24 01/14/25 History Multivitamins, Thera [Multivitamin 1 tab PO DAILY 12/02/24 01/14/25 History (formulary)] Metoprolol Succinate [Toprol XL] 50 mg PO HS 12/17/24 01/14/25 History Vitamin B-12 (Unknown Dose) 1 tab PO DAILY 12/17/24 01/14/25 History Zyrtec (Unknown Dose) 1 tab PO HS 12/17/24 01/14/25 History methocarbamoL [Robaxin-750] 750 mg PO HS 12/17/24 01/14/25 History Omeprazole [PriLOSEC] 40 mg PO DAILY #14 cap 12/21/24 01/14/25 Rx Ergocalciferol [Vitamin D2 (1250 1,250 mcg PO WEEKLY #20 cap 12/30/24 01/14/25 Rx Mcg = [id number] Iu)] allopurinoL 100 mg PO DAILY 12/30/24 01/14/25 History Albuterol Inhaler [Ventolin Hfa 1 - 2 puff INHALATION Q6H PRN 01/14/25 01/14/25 History Inhaler] Allergies Allergy/AdvReac Type Severity Reaction Status Date / Time cephalexin [From Keflex] Allergy Rash/Hives Verified 01/18/25 10:26 Surgical - Exam Vital Signs Temp Pulse Resp BP Pulse Ox 98 F 85 16 141/89 97 01/18/25 10:32 01/18/25 10:32 01/18/25 10:32 01/18/25 10:32 01/18/25 10:32
[2025-01-18] MEDS: DEXAMETHASONE SOD PHOSPHATE 4 MG/ML 1 ML VIAL IV ONE (10:57)
[2025-01-18] MEDS: ACETAMINOPHEN TAB 500 MG TAB PO PRN (10:57)
[2025-01-18] MEDS: ALVIMOPAN 12 MG CAPSULE PO PRN (10:57)
[2025-01-18] MEDS: ENOXAPARIN 40 MG/0.4 ML SYRINGE SQ PRN (10:58)
[2025-01-18] MEDS: SCOPOLAMINE 1 MG/72 HR PATCH TRANSDERM STA (10:58)
[2025-01-18] MEDS: PANTOPRAZOLE 40 MG/10 ML VIAL IVP PRN (10:58)
[2025-01-18] MEDS: ONDANSETRON 4 MG/2 ML VIAL IVP ONE (10:58)
[2025-01-18] MEDS: CHLORHEXIDINE GLUCONATE 15 ML CUP MUCOUS MEM PRN (10:58)
[2025-01-18] MEDS: LACTATED RINGERS 1,000 ML IV SCH (10:58)
[2025-01-18] MEDS: IV FLUID CONTINUATION 1,000 ML IV ONE ×2 (11:04→20:44)
--- NOTE | 2025-01-18 11:19 | P.HPADDEND ---
H&P Addendum H&P Addendum Date: 01/18/25 Patient presents with symptomatic right upper quadrant abdominal pain chronic cholecystitis. Robotic cholecystectomy described along with sleeve gastrectomy for which he is elevated risk.
[2025-01-18] MEDS ORDERED: PROPOFOL 10 MG/ML 20 ML VIAL IV ONE (12:02)
[2025-01-18] MEDS ORDERED: ROCURONIUM 10 MG/ML (5 ML VIAL) IV ONE (12:02)
[2025-01-18] MEDS ORDERED: NEOSTIGMINE 1 MG/ML 10 ML VIAL ONE (12:02)
[2025-01-18] MEDS ORDERED: LIDOCAINE 1% INJ 10MG/ML (20 ML MDV) ONE (12:02)
[2025-01-18] MEDS ORDERED: SUCCINYLCHOLINE CHLORIDE 200 MG/10 ML VIAL IV ONE (12:02)
[2025-01-18] MEDS ORDERED: GLYCOPYRROLATE 0.2 MG/ML 2 ML VIAL ONE (12:02)
[2025-01-18] MEDS ORDERED: fentaNYL (PF) 50 MCG/ML 2 ML AMP ONE (12:02)
[2025-01-18] MEDS ORDERED: MIDAZOLAM 2 MG/2 ML VIAL ONE (12:02)
[2025-01-18] MEDS ORDERED: HYDROmorphone (PF) 1 MG/ML ONE (12:02)
[2025-01-18] MEDS ORDERED: KETAMINE HCL IN 0.9 % NACL 50 MG/5 ML SYRINGE ONE (12:02)
[2025-01-18] MEDS: ceFAZolin 3 GM in SODIUM CHLORIDE 0.9% 100 ML IVPB PRN (12:07)
[2025-01-18] MEDS: LIDOCAINE 1%-EPI 1:100,000 20 ML VIAL SQ ONE (12:34)
[2025-01-18] MEDS: LACTATED RINGERS 1,000 ML IV ONE (13:37)
[2025-01-18] MEDS ORDERED: NALOXONE 0.4 MG/ML 1 ML VIAL IV PRN (14:53)
[2025-01-18] MEDS ORDERED: HYDROmorphone 1 MG/ML 1 ML SYRINGE IVP PRN (14:53)
--- NOTE | 2025-01-18 14:54 | P.OP ---
Date of Procedure: 01/18/25 Description of Procedure: SURGEON: DIEGO PONCE MD PREOPERATIVE DIAGNOSES: 1. Morbid obesity due to excess calories 2. Body mass index of 44.7 3. Gastroesophageal reflux disease 4. Hyperlipidemia 5. Hypertensive heart disease 6. Obstructive sleep apnea 7. Hypotestosteronism 8. Mnire's disease 9. Depressive disorder 10. Gout 11. Osteoarthritis lower back 12. Right upper quadrant abdominal pain 13. Family history of cholecystitis 14. Chronic cholecystitis POSTOPERATIVE DIAGNOSES: 1. Morbid obesity due to excess calories 2. Body mass index of 44.7 3. Gastroesophageal reflux disease 4. Hyperlipidemia 5. Hypertensive heart disease 6. Obstructive sleep apnea 7. Hypotestosteronism 8. Mnire's disease 9. Depressive disorder 10. Gout 11. Osteoarthritis lower back 12. Right upper quadrant abdominal pain 13. Family history of cholecystitis 14. Chronic cholecystitis 15. Fatty liver disease with hepatomegaly OPERATION: 1. Robotic assisted daVinci Xi laparoscopic sleeve gastrectomy with 40-Panamanian bougie, multiport. 2. Robotic assisted daVinci Xi laparoscopic cholecystectomy with FIREFLY, multiport. 3. Intraoperative esophagogastroduodenoscopy. ANESTHESIA: Gen. local anesthetic ESTIMATED BLOOD LOSS: 20 mL SPECIMENS REMOVED: Sleeve gastrectomy and gallbladder COMPLICATIONS: None. FINDINGS: 1. Negative intraoperative esophagogastrojejunoscopy leak test. 2. No hepatomegaly or large hiatus hernia. 3. Total of 6 staplers used including 1 - 60 mm black robot, 1 - 60 mm green robot, brandon and 4 - 60 mm blue loads used to create the gastric sleeve. 4. Sleeve gastrectomy 28 x 4 cm 5. Gallbladder removed without contamination. INDICATIONS:Ankit Vásquez is a 34-year-old male who comes with lifelong morbid obesity. He also presents with epigastric right upper quadrant abdominal pain including family history of gallbladder disease. Patient presents for chronic cholecystitis. He completed bariatric risk assessment including medical supervised weight loss. He presents for sleeve gastrectomy and cholecystectomy. At height of 6 feet 1 inches, ideal body weight is 188 pounds. He comes in 315 pounds from 339 pounds. He has lost 23 pounds in over 1 month. Body mass index is down from 44.7 to 41.7. He is 128 pounds overweight. All surgical options for morbid obesity had been described using the [place] [facility] comorbidity resolution including complication risk score. A second-generation bariatric consent form was described in detail including the possibility of protein malnutrition, leaks, gastric stricture, venous thrombosis, gastroesophageal reflux disease, need for further surgery for which she demonstrated understanding. Additionally he had clinical cholecystitis for which cholecystectomy was described. Benefits and risks of the procedure were described at length. Informed consent was obtained. DESCRIPTION: The patient was brought into the operating room theater. Preoperatively she had received Lovenox subcutaneously for DVT prophylaxis. Additionally she had Peridex oral s olution as an oral decontaminant. After general induction, the abdomen was prepped and draped in standard sterile fashion. An Ioban draping was placed along the abdomen. No choudhury catheter was placed A robotic [employer] Xi system was prepped and primed. At 13 cm from the xiphoid, proposed port sites were marked with indelible marker along the anterior axillary line bilaterally, mid axillary line bilaterally with each ports were marked 10 to 15 cm from each other. The certified medical technician assistant port was marked along the left lateral abdominal wall. The robotic stapler port was marked for the right midclavicular line. A 5 mm 0 degrees laparoscopic trocar entry was performed along the left upper quadrant. The abdomen was insufflated to 15 mmHg pressure was tolerated well. Diagnostic laparoscopy demonstrated no injury to bowel, viscera, or mesentery. The liver surface had fatty liver deposits including mildly Pado megaly. No injury had occurred to the small bowel or viscera. Along the hiatus no p rominent hiatal hernia. A 12 mm port was placed along the left upper abdominal wall after exchanging the 5 mm port. Another port was placed along the left lateral abdominal wall 8 mm. A separate 8 mm port was placed along the epigastrium and a 12-mm port placed along the right upper quadrant. Please note that the ports were placed at least 20 cm away from the target anatomy. Another port was placed along the right lateral abdominal wall, 8 mm trocar. Care was taken to check each robotic arms were safely away from collision with the bed or the patient. I had sat at the console. Next, 12-mm robot stapler port was placed along the right upper quadrant. The camera 8-mm port was maintained along the epigastrium. The patient was repositioned in reverse Trendelenburg position at 21-degrees after lowering the bed. The robot was docked along the right side of the patient. Using a grasper for arm 2, a hook cautery for arm 3, including grasper for arm 1, the robotic system was docked and primed as described. Instruments including Bovie cautery, vessel sealer, and staplers, and clips were interchanged by the certified medical technician assistant for stapler loads. The camera was placed at 30-degrees down. Attention was brought to the sleeve gastrectomy portion of the case. The pylorus was identified and 6 cm proximally along the greater curvature of the stomach, the short gastrics were mobilized upwards to the angle of His using a vessel sealer. Redundant and adherent gastric cardia was addressed similarly and carefully with vessel sealer. Hemostasis was excellent during this portion of the procedure. The nursing harmonic analyst positioned a 40-Panamanian blunt bougie into the stomach. Robotic stapler green and blue loads 60 mm x 5 were used to create the sleeve. Initial firing was across the antrum of the stomach towards the angle of His. The staple line was completely hemostatic and linear without corkscrewing. Hemostasis was excellent. The space from the angularis incisura of the sleeve w as approximately 4 cm. Attention was brought to gallbladder. The gallbladder fundus was retracted over the dome of the liver. Initial attention was brought to the infundibulum which was gently retracted in the inferior lateral approach. Using a grasper, the cystic duct including the cystic artery was carefully skeletonized. FIREFLY was used to identify the cystic artery and cystic structures. Large PLASTIC clips were used throughout the entire case. Using a clip power system electrical engineer 2 clips were placed proximally, and 1 clip was placed distally along the cystic duct and then cauterized. Again care was taken to avoid any injury to the biliary tree as the common bile duct was clearly visualized during this portion of dissection. Next, the cystic artery was cauterized. Total of 2 clips were left at the hepatic fossa Electro-Bovie cautery was used to remove the gallbladder from the hepatic fossa. Hemostasis was checked and found to be adequate. I then went to the head of the bed to perform the intraoperative esophagogastroduodenoscopy leak test. The upper pole of the stomach was bathed using normal saline solution. The scope was withdrawn with careful inspection along the staple line for which no leaks were found along the entire length. The pylorus was widely patent. Additionally, the sleeve had blood clots which were suctioned and findings without any encroachment along the angularis incisura. Its topology was a soft "J". No stricture was encountered upon placement of the scope. The GI tract was desufflated. The patient tolerated this portion of the procedure well. The scope was completely withdrawn. The robot was undocked. I then rescrubbed into case, whereby the irrigation fluid was aspirated from the abdominal cavity. Tisseal fibrin sealant was placed along the entire staple length. Once dried the Emperatriz liver retractor was removed. Attention was now brought to removal of the specimens including the gallbladder. Gallbladder was removed using Endo Catch bag. The distal end of the sleeve gastrectomy specimen was brought out through the 12 mm port at the left upper quadrant. The specimen was gently removed en total, corresponding to 28 cm x 4 cm sleeve gastrectomy specimen. No contamination had occurred during this process. All instruments and pneumoperitoneum including irrigation fluid was removed from the abdominal cavity. The 12 mm port site was irrigated with warm normal saline solution and diluted hydron peroxide. The final incisions were closed using subcuticular interrupted suture of 4-0 Monocryl. Exofin was applied to the skin once the skin had been cleansed. OptiFoam dressing was placed along the stomach extraction site. At the end of the procedure, needle, sponge, and instrument count was verified correct by the surgical dental assistant. The patient was taken to the postanesthesia care unit in stable condition. The patien had tolerated the procedure well. Intraoperative films and findings were reviewed with the patient's family.
[2025-01-18] MEDS: ONDANSETRON 4 MG/2 ML VIAL IVP SCH (15:22)
[2025-01-18] MEDS: HYDROmorphone 0.5 MG/0.5 ML SYRINGE IVP PRN (15:39)
[2025-01-18] MEDS: droPERidol 2.5 MG/ML VIAL IVP ONE (18:09)
[2025-01-18] MEDS: SODIUM CHLORIDE 0.9% 1,000 ML IV SCH (20:48)
[2025-01-18] MEDS: PANTOPRAZOLE 40 MG/10 ML VIAL IV SCH (21:55)
[2025-01-18] MEDS: DEXAMETHASONE SOD PHOSPHATE 4 MG/ML 1 ML VIAL IVP SCH (21:55)
[2025-01-18] MEDS: INDOCYANINE GREEN 25 MG VIAL IV STA (22:34)
[2025-01-18] MEDS: DEXAMETHASONE SOD PHOSPHATE 10 MG/ML 1 ML VIAL IVP STA (22:34)
[2025-01-18] MEDS: ALBUTEROL NEBULIZED 2.5 MG/3 ML INHALATION SCH (22:35)
[2025-01-18] MEDS: fentaNYL PCA 500 MCG/50 ML BAG IV SCH (22:52)
[2025-01-18] MEDS: ceFAZolin 3 GM in SODIUM CHLORIDE 0.9% 100 ML IVPB SCH (23:12)
[2025-01-18] MEDS: METOPROLOL SUCCINATE (ER) 50 MG TAB.ER.24H PO SCH (23:12)
[2025-01-18] MEDS: methocarbamoL 750 MG TAB PO SCH (23:12)
[2025-01-19] MEDS: ACETAMINOPHEN IV (For NPO) 1,000 MG in EMPTY BAG 1 BAG IVPB SCH (00:11)
[2025-01-19] MEDS: SIMETHICONE 40 MG/0.6 ML DROPS 2,000 MG/30 ML BOTTLE PO SCH (00:13)
[2025-01-19] MEDS: HYOSCYAMINE ORAL DROPS 1.875 MG/15 ML BOTTLE PO SCH (00:13)
[2025-01-19] MEDS: 0.9% NACL WITH KCL 20 MEQ/L 1,000 ML IV SCH ×2 (03:10→09:16)
[2025-01-19 04:01] LABS: African American GFR (CKD) >90 (>60 ml/min/1.73 sqM); Anion Gap 15 mmol/L; Blood Urea Nitrogen 11 mg/dL (9-20); Calcium 9.3 mg/dL (8.4-10.2); Carbon Dioxide 22 mmol/L (22-30); Chloride 99 mmol/L (98-107); Non-African American GFR(CKD) >90 (>60 ml/min/1.73 sqM); Phosphorus 3.1 mg/dL (2.5-4.5); Potassium 4.3 mmol/L (3.5-5.1); Sodium 136 mmol/L (137-145)
[2025-01-19 04:04] LABS: Basophils % (A) 0 %; Eosinophils % (A) 0 %; HGB 13.3 gm/dL (13.0-17.5); Lymphocytes # (A) 0.7 k/uL (1.0-4.8); Lymphocytes % (A) 8 %; MCH 29.5 pg (25.0-35.0); MCHC 33.2 g/dL (31.0-37.0); MCV 88.9 fL (80.0-100.0); Mean Platelet Volume 7.8; Monocytes # (A) 0.2 k/uL (0-1.0); Monocytes % (A) 2 %; Neutrophils # (A) 8.2 k/uL (1.3-7.7); Neutrophils % (A) 90 %; Platelet Count 410 k/uL (150-450); RDW 12.9 % (11.5-15.5); WBC 9.1 k/uL (3.8-10.6)
[2025-01-19 08:53] VITALS: RESP 18
[2025-01-19] MEDS: ENOXAPARIN 40 MG/0.4 ML SYRINGE SQ SCH (08:59)
[2025-01-19 11:54] VITALS: BMI 41.6
--- NOTE | 2025-01-19 14:43 | P.DS ---
Providers Expected date of discharge: 01/19/25 Attending physician: Kena Rubin Primary care physician: Leonela Alanis Hospital Course: Discharge diagnosis 1. Morbid obesity due to excess calories 2. Body mass index of 44.7 3. Gastroesophageal reflux disease 4. Hyperlipidemia 5. Hypertensive heart disease 6. Obstructive sleep apnea 7. Hypotestosteronism 8. Mnire's disease 9. Depressive disorder 10. Gout 11. Osteoarthritis lower back 12. Right upper quadrant abdominal pain 13. Family history of cholecystitis 14. Chronic cholecystitis 15. Fatty liver disease with hepatomegaly Hospital course Ankit Vásquez is a 34-year-old male who comes with lifelong morbid obesity. He also presents with epigastric right upper quadrant abdominal pain including family history of gallbladder disease. Patient presents for chronic cholecystitis. Patient is status post Robotic sleeve gastrectomy and robotic assisted da Maribel Xi laparoscopic cholecystectomy. Patient is tolerating liquid diet. His pain is controlled. He is up and ambulating. Denies any difficulty urinating. He is afebrile. He is stable for discharge. Physician Tile Layer Drainage note has been reviewed by physician. Signing provider agrees with the documented findings, assessment, and plan of care. Patient Condition at Discharge: Stable Plan - Discharge Summary Discharge Rx Participant: Yes New Discharge Prescriptions: New bisacodyL [Dulcolax] 5 mg PO DAILY PRN #10 tab PRN Reason: Constipation Acetaminophen Tab [Tylenol] 1,000 mg PO Q6HR PRN #30 tablet PRN Reason: Pain Simethicone 40 mg/0.6 ml Drops [Mylicon Drops] 40 mg PO PCHS PRN #30 ml PRN Reason: Gas Omeprazole [PriLOSEC] 40 mg PO DAILY #30 cap Ondansetron Odt [Zofran Odt] 4 mg PO Q8HR PRN #9 tab PRN Reason: Nausea Continue Zyrtec (Unknown Dose) 1 tab PO HS Albuterol Inhaler [Ventolin Hfa Inhaler] 1 - 2 puff INHALATION Q6H PRN PRN Reason: Shortness Of Breath Testosterone Enanthate [Xyosted] 100 mg SQ WEEKLY Metoprolol Succinate [Toprol XL] 50 mg PO HS methocarbamoL [Robaxin-750] 750 mg PO HS allopurinoL 100 mg PO DAILY Discontinued Triamterene/Hydrochlorothiazid [Triamterene-Hctz 37.5-25 mg Cp] 37.5 mg PO QAM Sertraline [Zoloft] 50 mg PO HS Vitamin B-12 (Unknown Dose) 1 tab PO DAILY Ergocalciferol [Vitamin D2 (1250 Mcg = 21625 Iu)] 1,250 mcg PO WEEKLY #20 cap buPROPion [Wellbutrin] 100 mg PO DAILY Fenofibrate 160 mg PO DAILY Multivitamins, Thera [Multivitamin (formulary)] 1 tab PO DAILY Omeprazole [PriLOSEC] 40 mg PO DAILY #14 cap Discharge Medication List Testosterone Enanthate [Xyosted] 100 mg SQ WEEKLY 10/15/24 [History] Metoprolol Succinate [Toprol XL] 50 mg PO HS 12/17/24 [History] Zyrtec (Unknown Dose) 1 tab PO HS 12/17/24 [History] methocarbamoL [Robaxin-750] 750 mg PO HS 12/17/24 [History] allopurinoL 100 mg PO DAILY 12/30/24 [History] Albuterol Inhaler [Ventolin Hfa Inhaler] 1 - 2 puff INHALATION Q6H PRN 01/14/25 [History] Acetaminophen Tab [Tylenol] 1,000 mg PO Q6HR PRN #30 tablet 01/19/25 [Rx] Omeprazole [PriLOSEC] 40 mg PO DAILY #30 cap 01/19/25 [Rx] Ondansetron Odt [Zofran Odt] 4 mg PO Q8HR PRN #9 tab 01/19/25 [Rx] Simethicone 40 mg/0.6 ml Drops [Mylicon Drops] 40 mg PO PCHS PRN #30 ml 01/19/25 [Rx] bisacodyL [Dulcolax] 5 mg PO DAILY PRN #10 tab 01/19/25 [Rx] [place] [facility]Ref[place] [facility] Patient Instructions/Handouts: Nutrition after Bariatric Surgery (DC), Nutrition after Bariatric Surgery (GEN), Laparoscopic Sleeve Gastrectomy (DC), Laparoscopic Sleeve Gastrectomy (GEN) Activity/Diet/Wound Care/Special Instructions: Liquid diet only for 2 weeks No lifting over 4 pounds in 4 weeks May Shower. No soaking in bath tubs for 2 weeks Please notify your surgeon if you develop nausea and vomiting including new onset of abdominal pain. Continue to use incentive spirometry to prevent pneumonias. Please continue to ambulate at home to prevent blood clots in legs. Follow-up at the bariatric center. May shower. Dressings to be discontinued by surgeon in the office. Drink 64 oz of fluid daily. Start protein shakes on . Notify bariatric center for temp over 101.0, increased pain, drainage from incisions. No straws or carbonated beverages. Liquid diet only. Sugar content should be less than 6 g to avoid dumping syndrome. Take MOM for constipation. CRUSH, OPEN, OR CUT TABLETS LARGER THAN A SIZE OF A TIC TAC Do not take any vitamins or antidepressant medications due to increased bleeding risk after surgery with these medications Discharge Disposition: HOME SELF-CARE
[2025-01-19 14:44] VITALS: BP 128/74; PULSE 72; TEMP 98.6
== END 2025-01-19 16:25 | disposition home or self-care (01) ==
LOC: OR 10:11 → 4SSUR 21:18 → OR 01-19 16:25
PROVIDERS: ATTEND Surgery Plastic and Reconstructive Surgery
DX: K81.1 Chronic cholecystitis (principal); E66.01 Morbid (severe) obesity due to excess calories; E78.5 Hyperlipidemia, unspecified; F32.A Depression, unspecified; G47.33 Obstructive sleep apnea (adult) (pediatric); G89.29 Other chronic pain; I11.9 Hypertensive heart disease without heart failure; J45.909 Unspecified asthma, uncomplicated; K21.9 Gastro-esophageal reflux disease without esophagitis; K76.0 Fatty (change of) liver, not elsewhere classified; M10.9 Gout, unspecified; H81.09 Meniere's disease, unspecified ear; M19.90 Unspecified osteoarthritis, unspecified site; Z68.41 Body mass index [BMI] 40.0-44.9, adult; Z79.899 Other long term (current) drug therapy; Z87.891 Personal history of nicotine dependence; Z88.1 Allergy status to other antibiotic agents; Z83.49 Family history of other endocrine, nutritional and metabolic diseases; Z90.89 Acquired absence of other organs
CPT/HCPCS: 43775; 47562; S2900; 80051; 82310; 82565; 83735; 84100; 84520; 85025; 88304; 88307

== ENCOUNTER → 2025-01-20 | Outpatient (CLI) | payer BC ==
--- NOTE | 2025-01-20 09:01 | FL ---
EXAMINATION TYPE: FL barium swallow DATE OF EXAM: 01/20/2025 LIMITED UGI: CLINICAL INDICATION: Male, 34 years old with history of R63.4 ABNORMAL WEIGHT LOSS, obesity. Gastric sleeve surgery 2 days ago. TECHNIQUE: Limited esophagram is performed utilizing 20 oz of Gastroview. A total of 27 seconds of f luoroscopic time was utilized during procedure and 26 images obtained. Total DAP = 3663.7 COMPARISON: None. FINDINGS: The patient swallowed contrast without difficulty or delay. Esophageal peristalsis and mo tility are within normal limits. There is good flow of contrast along the diaphragmatic hiatus into proximal stomach and subsequent mild delay in flow through proximal anastomosis into gastric sleeve. There is good flow from distal sleeve and anastomosis into pylorus and duodenal sweep. Patient remain s asymptomatic. There is no evidence of contrast extravasation to suggest leak. IMPRESSION: No evidence of leak or significant obstruction status post recent gastric sleeve surgery. [facility], , 01/20/2025 8:59 AM
== END | disposition home or self-care (01) ==
LOC: RADFLMAIN 08:02
PROVIDERS: ATTEND Surgery Plastic and Reconstructive Surgery
DX: R13.10 Dysphagia, unspecified (principal); R63.4 Abnormal weight loss; E66.9 Obesity, unspecified
CPT/HCPCS: 74220; Q9967

== ENCOUNTER → 2025-01-20 | Outpatient (CLI) | payer BC ==
--- NOTE | 2025-01-20 09:26 | P.BASOAP ---
Subjective Progress Note Date: 01/20/25 DATE OF SERVICE: 01/20/2025 CHIEF COMPLAINT: Morbid obesity HISTORY OF PRESENT ILLNESS: Ankit Vásquez is a 34-year-old male who comes with lifelong morbid obesity. He is status post loose appendectomy 01/18/2025. He is postop day 2. No reports of nausea or vomiting. He has held his diuretic including antidepressants. He reports appropriate pain. No bowel movement as of yet. He is ambulating. No reports of shortness of breath. No reports of bilateral leg pain. At height of 6 feet 1 inches, ideal body weight is 188 pounds. He comes in 3169 from 315 pounds. He has gained 1 pounds in 2 days to be expected. He has lost 22 pounds in 6 weeks. Body mass index is down from 44.7 to 41.7. He is 127 pounds overweight. PHYSICAL EXAM: VITAL SIGNS: Height 6 foot 1 inches, weight 315 pounds. BMI 41.7 Intake & Output 01/19/25 01/20/25 01/20/25 18:59 06:59 18:59 Weight 143.335 kg GENERAL: Well-developed in no acute distress. HEENT: No scleral icterus. Extraocular movements grossly intact. Hears conversational speech. No nasal drainage. NECK: Supple without lymphadenopathy. CHEST: Nonlabored respirations with equal bilateral excursions. CARDIOVASCULAR: Regular rate and regular rhythm. Distal 2+ pulses. ABDOMEN: Incisions clean dry intact. Optifoam dressing discontinued. No signs of infection. Scraping from skin shave identified. MUSCULOSKELETAL: No clubbing, cyanosis. NEURO: No focal or lateralizing signs. Cranial nerves 2 through 12 grossly within normal limits. PSYCH: Appropriate affect. Alert and oriented to person, place and time. SKIN: Good skin turgor. Well perfused. STUDIES: Barium swallow dependent reviewed demonstrates no leak or obstruction. This is my independent interpretation. PATHOLOGY: Sleeve gastrectomy and gallbladder pending. ASSESSMENT: 1. Morbid obesity due to excess calories 2. Body mass index of 44.7 3. Gastroesophageal reflux disease 4. Hyperlipidemia 5. Hypertensive heart disease 6. Obstructive sleep apnea 7. Hypotestosteronism 8. Mnire's disease 9. Depressive disorder 10. Gout 11. Osteoarthritis lower back 12. Right upper quadrant abdominal pain 13. Family history of cholecystitis 14. Cholecystitis PLAN: 1. Due to his height and ideal body weight, goal protein intake at least 120 g protein described for daily use. 2. Additionally, to avoid dehydration, recommend increase fluid intake to 120 ounces daily. 3. Close outpatient follow-up with daily phone calls during the week described with follow-up next Saturday. 4. Patient had been temporarily discontinued from his antidepressants and diuretic for risk of side effects with Zofran and scopolamine patch. Patient may resume his medications with the exception of his hyperlipidemia medications. 5. Patient inquired for additional pain management where wearing abdominal binder titer should be of benefit. NSAIDs contraindicated due to increased risk of bleeding in the interim. Alternatively, Flexeril offered however patient is on Robaxin. Assessment/Plan Plan: Date: Initial Weight: Initial BMI: Current Weight: Current BMI: Type of Surgery: Total Volume in Band: Previous Volume: Volume Removed: Volume Added: Band Size:
[2025-01-20 09:53] VITALS: BP 123/76; PULSE 96; TEMP 97; BMI 42.8
== END ==
LOC: BARWHC3 09:03
PROVIDERS: ATTEND Surgery Plastic and Reconstructive Surgery
DX: E66.01 Morbid (severe) obesity due to excess calories (principal); K21.9 Gastro-esophageal reflux disease without esophagitis; E78.5 Hyperlipidemia, unspecified; I11.9 Hypertensive heart disease without heart failure; G47.33 Obstructive sleep apnea (adult) (pediatric); H81.09 Meniere's disease, unspecified ear; F32.A Depression, unspecified; M10.9 Gout, unspecified; M47.818 Spondylosis without myelopathy or radiculopathy, sacral and sacrococcygeal region; K81.9 Cholecystitis, unspecified; Z88.1 Allergy status to other antibiotic agents; Z68.41 Body mass index [BMI] 40.0-44.9, adult
CPT/HCPCS: 99211

== ENCOUNTER 2025-01-26 11:26 | Outpatient (CLI) | payer BC ==
[~2025-01-26 11:26] MED LIST changes: -LIDOCAINE 1% (10MG/ML) FOR IV START INTRADERMA PRN; -ONDANSETRON 4 MG/2 ML VIAL IVP PRN; +SODIUM CHLORIDE 0.9% 250 ML in EMPTY BAG 1 BAG IV PRN; +SODIUM CHLORIDE 0.9% 500 ML 500 ML in EMPTY BAG 1 BAG IV PRN
[2025-01-26 11:34] VITALS: RESP 16
[2025-01-26] MEDS: SODIUM CHLORIDE 0.9% 1,000 ML IV NR (11:39)
== END 2025-01-26 14:14 | disposition home or self-care (01) ==
LOC: PROCWHC3 11:26
PROVIDERS: ATTEND Surgery Plastic and Reconstructive Surgery
DX: E86.0 Dehydration (principal)
CPT/HCPCS: 96360; 96361

== ENCOUNTER → 2025-01-27 | Outpatient (CLI) | payer BC ==
[2025-01-27 16:18] VITALS: BP 138/72; PULSE 96; RESP 16; TEMP 97.5
[2025-01-27 16:27] VITALS: BMI 40.4
--- NOTE | 2025-01-27 16:33 | P.BASOAP ---
Subjective Progress Note Date: 01/27/25 Started spasms of the stomach for LUQ. Use vibrating massagw ball for LUQ incision. No heartburn. Fluids 64 oz. Protein shakes 100 grams. No consitpation. NO GERD. Lost 36 pounds. Otherwise doing well. Goal weight loss is under 300 pounds. [facility] [place] [facility]. Son lost 7 pounds. also losing weight togther. Objective - Vital Signs Vital signs: Vital Signs Temp 97.5 F L 01/27/25 16:02 Pulse 96 01/27/25 16:02 Resp 16 01/27/25 16:02 BP 138/72 01/27/25 16:02 Pulse Ox FiO2 Intake & Output 01/26/25 01/27/25 01/27/25 18:59 06:59 18:59 Weight 138.799 kg Assessment/Plan Plan: Date: 01/27/25 Initial Weight: Initial BMI: Current Weight: 138.799 kg Current BMI: Type of Surgery: Total Volume in Band: Previous Volume: Volume Removed: Volume Added: Band Size:
== END ==
LOC: BARWHC3 15:44
PROVIDERS: ATTEND Surgery Plastic and Reconstructive Surgery
DX: E66.01 Morbid (severe) obesity due to excess calories (principal); Z88.1 Allergy status to other antibiotic agents; Z71.3 Dietary counseling and surveillance; Z68.41 Body mass index [BMI] 40.0-44.9, adult
CPT/HCPCS: 97802; 99211

== ENCOUNTER → 2025-02-02 | Outpatient (CLI) | payer BC ==
[2025-02-02 17:18] LABS: INR 1.1 (<1.2); Partial Thromboplastin Time 24.7 sec (22.0-30.0); Prothrombin Time 11.9 sec (10.0-12.5)
[2025-02-03 02:37] LABS: HCT 45.2 % (39.6-50.0); HGB 14.6 g/dL (13.0-17.0); MCH 28.9 pg (27.0-32.0); MCHC 32.3 g/dL (32.0-37.0); MCV 89.3 FL (80.0-97.0); Mean Platelet Volume 10.9 FL (9.5-12.2); NRBC Per 100 WBC 0 X 10*3/uL (0.00-0.01); Platelet Count 337 X 10*3/uL (140-440); RBC 5.06 X 10*6/uL (4.40-5.60); RDW 13.2 % (11.5-14.5); WBC 6.84 X 10*3/uL (4.50-10.00)
[2025-02-03 03:19] LABS: % Iron Saturation 22.19 (15.00-50.00); ALT 46 U/L (10-49); AST 29 U/L (14-35); Albumin 4.7 g/dL (3.8-4.9); Albumin/Globulin Ratio 1.74 Ratio (1.60-3.17); Alkaline Phosphatase 55 U/L (41-126); BUN/Creat Ratio 14.56 Ratio (12.00-20.00); Blood Urea Nitrogen 13.1 mg/dL (9.0-27.0); Calcium 10.2 mg/dL (8.7-10.3); Carbon Dioxide 22.2 mmol/L (21.6-31.8); Chloride 105 mmol/L (96-109); Chol/HDL Ratio 6.31 Ratio; Globulin 2.7 g/dL (1.6-3.3); Glucose 92 mg/dL (70-110); Iron 73 UG/DL (65-175); LDL Cholesterol,Calculated 96.1 mg/dL (0.0-131.0); Magnesium 1.9 mg/dL (1.5-2.4); Phosphorus 3.4 mg/dL (2.4-5.1); Potassium 4.1 mmol/L (3.5-5.5); Sodium 140 mmol/L (135-145); Total Bilirubin 0.5 mg/dL (0.3-1.2); Total Iron Binding Capacity 329 UG/DL (228-460); Total Protein 7.4 g/dL (6.2-8.2)
[2025-02-03 03:25] LABS: Prealbumin 32.3 mg/dL (18.0-42.0)
[2025-02-03 14:03] LABS: Zinc, Serum 78 ug/dL (60-130)
[2025-02-04 06:31] LABS: Vitamin A 72 ug/dL (38-106)
[2025-02-04 06:58] LABS: Vit B1(Thiamine) 67 ug/L (38-122)
== END ==
LOC: LABWHC1 15:48
PROVIDERS: ATTEND Surgery Plastic and Reconstructive Surgery
DX: E66.01 Morbid (severe) obesity due to excess calories (principal); E89.1 Postprocedural hypoinsulinemia; D50.8 Other iron deficiency anemias; E44.0 Moderate protein-calorie malnutrition; E45 Retarded development following protein-calorie malnutrition; N19 Unspecified kidney failure; E55.9 Vitamin D deficiency, unspecified; K74.1 Hepatic sclerosis; T56.894A Toxic effect of other metals, undetermined, initial encounter; K50.90 Crohn's disease, unspecified, without complications; K91.2 Postsurgical malabsorption, not elsewhere classified
CPT/HCPCS: 36415; 80053; 80061; 82306; 82525; 82607; 82728; 82746; 83036; 83540; 83550; 83735; 83970; 84100; 84134; 84255; 84425; 84443; 84590; 84630; 85027; 85610; 85730

== ENCOUNTER → 2025-04-21 | Outpatient (CLI) | payer BC ==
[2025-04-21 16:58] VITALS: BP 150/93; PULSE 83; RESP 16; TEMP 98; BMI 35.1
--- NOTE | 2025-04-21 17:23 | P.BASOAP ---
Subjective Progress Note Date: 04/21/25 He had constipation issues. Lost 80 pounds. NO GERD. Fluids is 120 oz. Using Miralax. Stopped cholesterol medications. Stopped blood pressure medications. Back on water pills. Had dizzy spells from Meniers disease. Last time was HS. Lost 3 months. Getting testosterone shots. He has gout flare ups. He has started on allopurinol. On indomethacin and multiple medications. Protein is 120 grams dailyh. 128 oz New labs in May. Plan for Magnesium 400 mg, Fish oil, labs. Objective - Vital Signs Vital signs: Vital Signs Temp 98 F 04/21/25 16:51 Pulse 83 04/21/25 16:51 Resp 16 04/21/25 16:51 BP 150/93 04/21/25 16:51 Pulse Ox FiO2 Intake & Output 04/20/25 04/21/25 04/21/25 18:59 06:59 18:59 Weight 120.656 kg Assessment/Plan Plan: Date: 04/21/25 Initial Weight: Initial BMI: Current Weight: 120.656 kg Current BMI: 35.1 Type of Surgery: Total Volume in Band: Previous Volume: Volume Removed: Volume Added: Band Size:
== END ==
LOC: BARWHC3 15:57
PROVIDERS: ATTEND Surgery Plastic and Reconstructive Surgery
DX: E66.01 Morbid (severe) obesity due to excess calories (principal); Z88.1 Allergy status to other antibiotic agents; Z68.35 Body mass index [BMI] 35.0-35.9, adult
CPT/HCPCS: 99211